=== PATIENT | female | born 1985 | race Caucasian/White ===

== ENCOUNTER → 2019-07-20 | Outpatient (CLI) | payer MEDICARE, OTHER ==
[~2019-07-20] MED LIST: BACI500TO; CIPHYDOTSU; CIPR500 PO; CITA20 PO; HYDR1TAB94 PO; IBUP600 PO
[2019-07-24 15:06] LABS: HPV 16 Negative (Negative); HPV 18 Positive (Negative); HPV OTHER HR TYPES Positive (Negative)
== END | disposition home or self-care (01) ==
LOC: LAB SHORT 16:47 → LAB 16:47
PROVIDERS: Hospitalist
DX: Z12.4 Encounter for screening for malignant neoplasm of cervix (principal)
CPT/HCPCS: 87624; 87625; G0145

== ENCOUNTER → 2019-08-09 | Outpatient (CLI) | payer MEDICARE, OTHER | END | disposition home or self-care (01) | LOC: LAB SHORT 12:45 → PLD 12:45 | DX: N87.1 Moderate cervical dysplasia (principal); R23.4 Changes in skin texture | CPT/HCPCS: 88305 ==

== ENCOUNTER → 2020-10-30 | Outpatient (CLI) | payer MEDICARE, OTHER ==
[2020-11-01 09:01] LABS: HPV 16 Negative (Negative); HPV 18 Positive (Negative); HPV OTHER HR TYPES Negative (Negative)
== END | disposition home or self-care (01) ==
LOC: LAB SHORT 15:20 → LAB 15:20
PROVIDERS: Obstetrics & Gynecology
DX: R87.610 Atypical squamous cells of undetermined significance on cytologic smear of cervix (ASC-US) (principal); R87.810 Cervical high risk human papillomavirus (HPV) DNA test positive
CPT/HCPCS: 87624; 88142

== ENCOUNTER → 2020-11-20 | Outpatient (CLI) | payer MEDICARE, OTHER | END | disposition home or self-care (01) | LOC: PLD 09:06 → LAB SHORT 09:06 | DX: R23.4 Changes in skin texture (principal) | CPT/HCPCS: 88305 ==

== ENCOUNTER → 2021-06-24 | Outpatient (CLI) | payer MEDICARE, OTHER ==
[2021-06-27 14:10] LABS: HPV 16 Negative (Negative); HPV 18 Positive (Negative); HPV OTHER HR TYPES Positive (Negative)
== END | disposition home or self-care (01) ==
LOC: LAB SHORT 17:56 → LAB 17:56
PROVIDERS: Obstetrics & Gynecology
DX: Z12.4 Encounter for screening for malignant neoplasm of cervix (principal); R87.610 Atypical squamous cells of undetermined significance on cytologic smear of cervix (ASC-US); R87.810 Cervical high risk human papillomavirus (HPV) DNA test positive
CPT/HCPCS: 87624; 87625; G0123

== ENCOUNTER → 2022-04-20 | Outpatient (CLI) | payer MEDICARE, OTHER | END | disposition home or self-care (01) | LOC: LAB SHORT 09:20 | DX: L08.0 Pyoderma (principal) | CPT/HCPCS: 87070; 87077; 87147; 87186; 87205 ==

== ENCOUNTER 2022-08-27 14:54 | Inpatient (IN) | payer MEDICARE, OTHER ==
[~2022-08-27] VITALS: Ht 162.6 cm; Wt 120.3 kg
[2022-08-27 15:25] LABS: BASOPHILS ABSOLUTE AUTO 0.04 K/mm3 (0.00-0.23); BASOPHILS PERCENT AUTO 0 % (0-2); EOSINOPHILS ABSOLUTE AUTO 0.23 K/mm3 (0.00-0.68); EOSINOPHILS PERCENT AUTO 2 % (0-6); Hematocrit 39.8 % (33.0-51.0); IMMATURE GRAN ABSOLUTE AUTO 0.07 K/mm3 (0.00-0.10); IMMATURE GRAN PERCENT AUTO 1 % (0-1); LYMPHOCYTES ABSOLUTE AUTO 2.37 K/mm3 (0.84-5.20); LYMPHOCYTES PERCENT AUTO 24 % (21-46); MONOCYTES ABSOLUTE AUTO 0.78 K/mm3 (0.16-1.47); MONOCYTES PERCENT AUTO 8 % (4-13); Mean Corpuscular HGB Conc 32.7 g/dL (31.5-36.5); Mean Corpuscular Volume 95 fL (80-100); Mean Platelet Volume 12.4 fL (9.1-12.4); NEUTROPHILS ABSOLUTE AUTO 6.37 K/mm3 (1.96-9.15); NEUTROPHILS PERCENT AUTO 65 % (41-73); Platelet Count 215 K/mm3 (150-400); RDW Coefficient Variation 13.3 % (11.7-14.2); RDW Standard Deviation 46.8 fL (35.1-46.3); Red Blood Cell Count 4.19 M/mm3 (3.80-5.20); White Blood Cell Count 9.86 K/mm3 (4.00-11.30)
[2022-08-27 16:03] LABS: Albumin, Blood 3.1 g/dL (3.4-5.0); Albumin/Globulin Ratio 0.8 (0.8-1.8); Bilirubin, Total 0.4 mg/dL (0.1-1.0); Bun/Creatinine Ratio 15.3 (12.0-20.0); Creatinine, Blood 0.79 mg/dL (0.40-1.00); Globulin, Blood 3.8 g/dL (2.2-4.0); Potassium, Blood 3.5 mmol/L (3.5-5.5); Total Protein, Blood 6.9 g/dL (6.4-8.2)
[2022-08-27 18:56] LABS: U Amphetamine Screen Not Detected; U Barbituate Screen Not Detected; U Benzodiazapine Screen Not Detected; U Buprenorphine Screen Not Detected; U Cannabinoids Screen Not Detected; U Cocaine Screen Not Detected; U Methadone Screen Not Detected; U Methamphetamine Screen Not Detected; U Opiates Screen Not Detected; U Oxycodone Screen Not Detected; U Phencyclidine Screen Not Detected; U Propoxyphene Screen Not Detected
--- NOTE | 2022-08-27 21:55 | NUR ---
TRANSFER NOTE REPORT TAKEN FROM GUERA RN IN THE ED VIA TELEPHONE. PATIENT TRANSFERRED TO PCU 14 AT 2030. PATIENT WAS ABLE TO WALK FROM [facility] TO BED WITH NO DIFFICULTY. PATIENT WITH STABLE VITALS UPON ARRIVAL. CIWA OF 5 WITH REPORTED HEADACHE AND MILD TREMORS/ANXIETY; MEDICATED PER EMAR FOR HEADACHE. INFUSING NS AT 100MLS/HR PER EMAR INTO LEFT HAND IV. PATIENT'S LS CLEAR THROUGHOUT. DENIES CHEST PAIN/PRESSURE, SOB, AND DIZZINESS/LIGHTHEADEDNESS. PATIENT WITH MOM AT BEDSIDE WHO HELPED GIVE MEDICAL HISTORY. PATIENT APPEARS WITHDRAWN WITH CARE AND PLAYS ON PHONE WHILE ANSWERING THIS RN'S QUESTIONS WITHOUT MAKING EYE CONTACT. PATIENT AND MOTHER CONFIRM PATIENT HAVING PROBLEMS WITH ANXIETY. PATIENT STATES LAST DRINK WAS 5 DAYS AGO. PATIENT APPEARS APPREHENSIVE TO EDUCATION ABOUT ALCOHOL CESSATION. 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 MOTHER ALLOWED TO STAY AT BEDSIDE UNTIL PATIENT IS MORE RELAXED AND READY FOR BED. THIS RN WILL REVIEW CHART AND CONTINUE TO MONITOR AND PROVIDE INTERVENTIONS NEEDED/ORDERED.
--- NOTE | 2022-08-28 04:38 | NUR ---
SHIFT SUMMARY NO ACUTE CHANGES OVERNIGHT. NO SEIZURE ACTIVITY NOTED. NEURO WNL. PATIENT DENIES FEELINGS OF LIGHTHEADEDNESS WHICH PRECEDED SEIZURE PREVIOUSLY. IV CALCIUM GIVEN PER EMAR PER MD JACKSON. REDRAW FOR CALCIUM TIMED FOR 0800 TODAY. PATIENT DENIES TINGLING SENSATIONS. NSR ON THE MONITOR WITH HR 60-80'S. ON RA WITH SPO2 >94%. BP STABLE. AFEBRILE. LAST CIWA 4. NS INFUSING PER EMAR. PATIENT REFUSED THIS RN TO CHANGE CLOTHES AND HELP THE PATIENT DO PERICARE DURING THIS SHIFT. THIS RN NOTED REDNESS IN THE ABDOMINAL AND ROBERTO AREA FOLDS. WIPES LEFT IN ROOM FOR PATIENT TO USE INDEPENDENTLY. PATIENT IS ABLE TO REPOSITION SELF INDPENDENTLY IN BED. BED IN LOWEST POSITION AND CALL LIGHT WITHIN REACH. THIS RN WILL CONTINUE TO MONITOR UNTIL SHIFT CHANGE AT 0700.
[2022-08-28 05:57] LABS: Magnesium, Blood 2.2 mg/dL (1.6-2.4)
[2022-08-28 06:04] LABS: Bun/Creatinine Ratio 14.4 (12.0-20.0); Calcium, Blood 5.8 mg/dL (8.5-10.1); Creatinine, Blood 0.7 mg/dL (0.40-1.00)
[2022-08-28 06:54] LABS: BASOPHILS ABSOLUTE AUTO 0.02 K/mm3 (0.00-0.23); BASOPHILS PERCENT AUTO 0 % (0-2); EOSINOPHILS ABSOLUTE AUTO 0.19 K/mm3 (0.00-0.68); EOSINOPHILS PERCENT AUTO 3 % (0-6); Hematocrit 38.4 % (33.0-51.0); Hemoglobin 12.7 g/dL (11.5-16.0); IMMATURE GRAN ABSOLUTE AUTO 0.01 K/mm3 (0.00-0.10); IMMATURE GRAN PERCENT AUTO 0 % (0-1); LYMPHOCYTES ABSOLUTE AUTO 1.17 K/mm3 (0.84-5.20); LYMPHOCYTES PERCENT AUTO 18 % (21-46); MONOCYTES ABSOLUTE AUTO 0.46 K/mm3 (0.16-1.47); MONOCYTES PERCENT AUTO 7 % (4-13); Mean Corpuscular HGB 31.6 pg (26.0-34.0); Mean Corpuscular HGB Conc 33.1 g/dL (31.5-36.5); Mean Corpuscular Volume 96 fL (80-100); Mean Platelet Volume 12.6 fL (9.1-12.4); NEUTROPHILS ABSOLUTE AUTO 4.81 K/mm3 (1.96-9.15); NEUTROPHILS PERCENT AUTO 72 % (41-73); Platelet Count 190 K/mm3 (150-400); RDW Coefficient Variation 13.6 % (11.7-14.2); Red Blood Cell Count 4.02 M/mm3 (3.80-5.20); White Blood Cell Count 6.66 K/mm3 (4.00-11.30)
--- NOTE | 2022-08-28 11:11 | NUR ---
CARE ASSUMPTION THIS RN ASSUMED CARE AT 0700. VSS. PATIENT IS ALERT AND ORIENTED X4. PATIENT REPORTS NO CHEST PAIN/PRESSURE, PAIN OR SHORTNESS OF BREATH. PATIENT IS A STAND BY ASSIST WHEN GETTING UP AROUND THE ROOM, AND IS ABLE TO PERFORM ADLS INDEPDENTLY. FAMILY AT BEDSIDE AND UPDATED ON PLAN OF CARE. MD COYNE IN TO SEE PATIENT AND UPDATED ON PLAN OF CARE. SEE SHIFT ASSESSMENT FOR FURTHER DETIALS. CALL LIGHT WITHIN REACH AND BED IN LOWEST POSITION.
--- NOTE | 2022-08-28 17:19 | NUR ---
SHIFT SUMMARY PATIENT NEURO REMAINS INTACT. VSS. TELE SR 70S-80. AWAITING FOR PATIENT TO HAVE AN EEG, WAS NOT ABLE TO HAVE ONE TODAY, AND HOPEFULLY TOMORROW WILL BE ABLE TO. NO ACUTE CHANGES THIS SHIFT. PATIENT CALLS APPRORPIATELY WHEN NEEDING ASSISTANCE. PATIENT IS A STANDBY ASSSIT TO THE BATHROOM. PATIENT REPORTS NO PAIN, CHEST PAIN, OR SHORTNESS OF BREATH. MOTHER HAS BEEN AT BEDSIDE MAJORITY OF THE DAY. PLAN OF CARE UP TO DATE. CALL LIGHT WITHIN REACH AND BED IN LOWEST POSITION. WILL CONTINUE TO MONITOR AND PROVIDE CARE UNTIL HAND OFF WITH NEXT SHIFT.
--- NOTE | 2022-08-28 20:22 | NUR ---
ASSUMPTION OF CARE THIS RN ASSUMED CARE OF PATIENT AT 1900. REPORT TAKEN FROM JUNAID QUILES. PATIENT WITH STABLE VITALS AT TIME OF SHIFT CHANGE. PATIENT FINISHED 2L OF NS PER EMAR. SALINE LOCKED IV'S. PATIENT IS ALERT AND ORIENTED FULLY WITH NORMAL PUPIL RESPONSE. DENIES TINGLING IN EXTREMETIES. SEIZURE PADS IN PLACE ON BED. THIS RN ASKED THE PATIENT TO TAKE A SHOWER TO WASH HER HAIR TONIGHT; PATIENT REFUSED AND STATED THAT SHE "JUST GOT COMFORTABLE AND WANTS TO BE LEFT ALONE TO SLEEP". PATIENT EDUCATED ON NEEDING CLEAN HAIR FOR EEG, PATIENT CONTINUED TO DECLINE; THIS RN WILL ATTEMPT INTERVENTION AT A LATER TIME THIS SHIFT. CIWA OF 2 AT THIS TIME. PATIENT ABLE TO REPOSITION SELF IN BED. DENIES PAIN. ABLE TO MAKE NEEDS KNOWN. BED IN LOWEST POSITION AND CALL LIGHT WITHIN REACH. THIS RN WILL REVIEW CHART AND CONTINUET TO MONITOR AND PROVIDE INTERVENTIONS NEEDED/ORDERED.
--- NOTE | 2022-08-29 04:33 | NUR ---
SHIFT SUMMARY NO ACUTE CHANGES OVERNIGHT. NO CHANGES TO NEURO FROM PREVIOUS NOTE. NO SEIZURE ACTIVITY NOTED. PADS REMAIN IN PLACE. VSS. SEE ASSESSMENT. PATIENT REFUSED TO WASH FOR POSSIBLE EEG; THIS RN WILL CONTINUE TO ATTEMPT TO EDUCATE PATIENT ON WASHING HAIR FOR POSSIBLE EEG IN THE AM SO HAIR IS CLEAN FOR PROCEDURE. PATIENT SBA TO THE BATHROOM; CURRENTLY MENSTRUATING WITH PADS IN ROOM. ABLE TO MAKE NEEDS KNOWN. CIWA SCORE OF 1 THIS AM. MEDICATING PER EMAR. BED IN LOWEST POSITION AND CALL LIGHT WITHIN REACH. THIS RN WILL CONTINUE TO MONITOR PATIENT AND PROVIDE INTERVENTIONS NEEDED/ORDERED UNTIL SHIFT CHANGE AT 0700.
[2022-08-29 04:37] LABS: BASOPHILS ABSOLUTE AUTO 0.03 K/mm3 (0.00-0.23); BASOPHILS PERCENT AUTO 1 % (0-2); EOSINOPHILS ABSOLUTE AUTO 0.19 K/mm3 (0.00-0.68); EOSINOPHILS PERCENT AUTO 3 % (0-6); Hematocrit 35.5 % (33.0-51.0); Hemoglobin 11.6 g/dL (11.5-16.0); IMMATURE GRAN ABSOLUTE AUTO 0.02 K/mm3 (0.00-0.10); IMMATURE GRAN PERCENT AUTO 0 % (0-1); LYMPHOCYTES ABSOLUTE AUTO 1.47 K/mm3 (0.84-5.20); LYMPHOCYTES PERCENT AUTO 23 % (21-46); MONOCYTES PERCENT AUTO 9 % (4-13); Mean Corpuscular HGB 31.2 pg (26.0-34.0); Mean Corpuscular HGB Conc 32.7 g/dL (31.5-36.5); Mean Corpuscular Volume 95 fL (80-100); Mean Platelet Volume 12.4 fL (9.1-12.4); NEUTROPHILS ABSOLUTE AUTO 4.14 K/mm3 (1.96-9.15); NEUTROPHILS PERCENT AUTO 64 % (41-73); Platelet Count 171 K/mm3 (150-400); RDW Coefficient Variation 13.5 % (11.7-14.2); RDW Standard Deviation 47.3 fL (35.1-46.3); Red Blood Cell Count 3.72 M/mm3 (3.80-5.20); White Blood Cell Count 6.45 K/mm3 (4.00-11.30)
[2022-08-29 05:02] LABS: Bun/Creatinine Ratio 17.6 (12.0-20.0); Calcium, Blood 7.4 mg/dL (8.5-10.1); Creatinine, Blood 0.68 mg/dL (0.40-1.00); Magnesium, Blood 1.6 mg/dL (1.6-2.4); Phosphorus, Blood 4.7 mg/dL (2.5-4.9); Potassium, Blood 3.5 mmol/L (3.5-5.5)
--- NOTE | 2022-08-29 06:42 | NUR ---
PATIENT UPDATE THIS RN WASHED PATIENT'S HAIR AT 0530 AND DETANGLED/BRUSHED HAIR FOR POSSIBLE EEG TODAY.
[2022-08-29] MEDS ORDERED: Calcium Carbon500 MG PO (13:07)
[2022-08-29] MEDS ORDERED: ERGO50000 PO (13:08)
--- NOTE | 2022-08-29 14:00 | NUR ---
DISCHARGE HOME PT A&O X4. VSS. SPO2 > 92% ON RA. MONITOR SHOWING SR, HR 80s ON TELEMETRY PRIOR TO REMOVAL. PT DENIES PAIN/DISCOMFORT. NO SEIZURE ACTIVITY THIS SHIFT PT AGREEABLE TO MD PLAN FOR DISCHARGE & FOLLOW UP W/ PCP & OUTPT EEG. DISCHARGE INSTRUCTIONS REVIEWED W/ PT & PT MOTHER AT BEDSIDE. PIV REMOVED. DISCHARGE INSTRUCTIONS SENT HOME W/ PT. PT TAKEN OUT BY WHEELCHAIR W/ BELONGINGS @ APPROX 1400.
== END 2022-08-29 14:00 | disposition home or self-care (01) | DRG 641 ==
LOC: ER 14:54 → PCU 20:06
PROVIDERS: Family Medicine; Student in an Organized Health Care Education/Training Program; ADMIT Internal Medicine
PROC: HZ2ZZZZ Detoxification Services for Substance Abuse Treatment (ICD-10-PCS; principal; 2022-08-27)
DX: E83.51 Hypocalcemia (principal); R25.8 Other abnormal involuntary movements; R55 Syncope and collapse; N26.1 Atrophy of kidney (terminal); L40.9 Psoriasis, unspecified; R94.31 Abnormal electrocardiogram [ECG] [EKG]; E83.42 Hypomagnesemia; E55.9 Vitamin D deficiency, unspecified; F10.10 Alcohol abuse, uncomplicated; F41.9 Anxiety disorder, unspecified; Y90.0 Blood alcohol level of less than 20 mg/100 ml; Z28.21 Immunization not carried out because of patient refusal; Z90.89 Acquired absence of other organs; Z98.890 Other specified postprocedural states; Z88.2 Allergy status to sulfonamides; Z91.040 Latex allergy status
CPT/HCPCS: 36415; 70450; 80048; 80053; 82306; 82330; 83735; 83970; 84100; 84146; 84703; 85025; 93005; 93010; A9270; G0480; J0610; J1650; J3475; J7030

== ENCOUNTER → 2022-12-09 | Outpatient (CLI) | payer MEDICARE, OTHER ==
[~2022-12-09] MED LIST changes: +Calcium Carbon500 MG PO; +ERGO50000 PO
[2022-12-09 19:45] LABS: Magnesium, Blood 1.8 mg/dL (1.6-2.4)
[2022-12-09 19:47] LABS: Bun/Creatinine Ratio 22.3 (12.0-20.0); Calcium, Blood 6.4 mg/dL (8.5-10.1); Creatinine, Blood 0.76 mg/dL (0.40-1.00)
== END | disposition home or self-care (01) ==
LOC: LAB SHORT 15:40 → LAB 15:40
PROVIDERS: Hospitalist
DX: E83.42 Hypomagnesemia (principal); E83.51 Hypocalcemia; R73.9 Hyperglycemia, unspecified
CPT/HCPCS: 80048; 82306; 83036; 83735

== ENCOUNTER 2023-12-13 10:15 | Day surgery (SDC) | payer MEDICARE, OTHER ==
[~2023-12-13] VITALS: Ht 160 cm; Wt 111.4 kg
[~2023-12-13 10:15] MED LIST changes: +EPINEPhrine HCl 1 MG / ML 30ML Vial ONE; +Lactated Ringer's 1,000 ML IV ONE
[2023-12-13] MEDS ORDERED: propofoL 20 ML IV ONE (11:00)
[2023-12-13] MEDS ORDERED: FentaNYL Citrate 50 MCG/ML 2 ML Injection ONE (11:01)
[2023-12-13] MEDS ORDERED: Vivitrol380 MG SC (11:02)
[2023-12-13] MEDS ORDERED: Rocuronium Bromide 10 MG/ML 5ML Injection IV ONE (11:03)
[2023-12-13] MEDS ORDERED: Lactated Ringer's 1,000 ML IV ONE (11:27)
[2023-12-13] MEDS ORDERED: Ciprofloxacin 0.3% Opth Soln 2.5 ML BTL ONE (11:29)
[2023-12-13] MEDS ORDERED: Midazolam HCl 1MG / ML 2ML Vial ONE (11:35)
[2023-12-13] MEDS ORDERED: Ondansetron HCl 2 MG / ML 2ML Vial ONE (11:52)
[2023-12-13] MEDS ORDERED: Dexamethasone Sod Phos 10 MG/ML 1ML VIAL ONE (11:52)
--- NOTE | 2023-12-13 12:24 | NUR ---
12/13/23 1224 RADHA CANALES PT DENIES PAIN AND NAUSEA
--- NOTE | 2023-12-13 12:40 | NUR ---
12/13/23 1240 RADHA CANALES IN WITH PT.
[2023-12-13 13:41] VITALS: BP 143/96
== END 2023-12-13 13:35 | disposition home or self-care (01) ==
LOC: ORSCSDS 10:15
PROVIDERS: Otolaryngology
PROC: 099670Z Drainage of Left Middle Ear with Drainage Device, Via Natural or Artificial Opening (ICD-10-PCS; principal; 2023-12-13 11:30)
PROC: 09Q87ZZ Repair Left Tympanic Membrane, Via Natural or Artificial Opening (ICD-10-PCS; principal; 2023-12-13 11:30)
DX: H72.02 Central perforation of tympanic membrane, left ear (principal); E66.9 Obesity, unspecified; Z68.41 Body mass index [BMI] 40.0-44.9, adult; Z79.899 Other long term (current) drug therapy
CPT/HCPCS: A9270; J0171; J1100; J2250; J2405; J2704; J3010; J7120

== ENCOUNTER → 2024-03-14 | Outpatient (CLI) | payer MEDICARE, OTHER ==
[~2024-03-14] MED LIST changes: -EPINEPhrine HCl 1 MG / ML 30ML Vial ONE; -Lactated Ringer's 1,000 ML IV ONE; +Vivitrol380 MG SC
== END | disposition home or self-care (01) ==
LOC: LAB 17:30 → LAB SHORT 17:30
DX: E55.9 Vitamin D deficiency, unspecified (principal); R53.83 Other fatigue
CPT/HCPCS: 82306; 84443

== ENCOUNTER → 2024-06-13 | Outpatient (CLI) | payer MEDICARE, OTHER ==
[2024-06-13 19:47] LABS: Albumin, Blood 3.6 g/dL (3.4-5.0); Albumin/Globulin Ratio 1.1 (0.8-1.8); Bilirubin, Total 0.5 mg/dL (0.1-1.0); Bun/Creatinine Ratio 21.9 (12.0-20.0); Calcium, Blood 7.1 mg/dL (8.5-10.1); Creatinine, Blood 0.91 mg/dL (0.40-1.00); Globulin, Blood 3.3 g/dL (2.2-4.0); Potassium, Blood 3.8 mmol/L (3.5-5.5); Total Protein, Blood 6.9 g/dL (6.4-8.2)
== END | disposition home or self-care (01) ==
LOC: LAB SHORT 17:40 → LAB 17:40
PROVIDERS: Hospitalist
DX: N39.44 Nocturnal enuresis (principal); R73.9 Hyperglycemia, unspecified
CPT/HCPCS: 80053; 83036; 87086

== ENCOUNTER → 2024-09-04 | Outpatient (CLI) | payer MEDICARE, OTHER ==
[2024-09-04 20:08] LABS: Bun/Creatinine Ratio 24.4 (12.0-20.0); Calcium, Blood 7.4 mg/dL (8.5-10.1); Creatinine, Blood 0.78 mg/dL (0.40-1.00); Potassium, Blood 4.2 mmol/L (3.5-5.5)
== END ==
LOC: LAB SHORT 19:48 → LAB 19:48
PROVIDERS: Hospitalist
DX: E83.51 Hypocalcemia (principal)
CPT/HCPCS: 80048; 82306

== ENCOUNTER 2025-03-21 17:14 | Emergency (ER) | payer MEDICARE, OTHER ==
[~2025-03-21] VITALS: Ht 160 cm; Wt 113.4 kg
[2025-03-21 17:21] VITALS: BP 118/66
[2025-03-21] MEDS ORDERED: Ketorolac Tromethamine 15mg Vial IM ONE (17:30)
[2025-03-21] MEDS ORDERED: Robaxin750 MG PO (17:33)
== END 2025-03-21 17:36 | disposition home or self-care (01) ==
LOC: ER 17:14
DX: M25.511 Pain in right shoulder (principal); Z88.2 Allergy status to sulfonamides; Z91.040 Latex allergy status; Z79.899 Other long term (current) drug therapy
CPT/HCPCS: 96372; 99282-25; J1885

== ENCOUNTER → 2025-05-08 | Outpatient (CLI) | payer MEDICARE, OTHER ==
[~2025-05-08] MED LIST changes: +Robaxin750 MG PO
[2025-05-08 20:43] LABS: Amylase, Blood 32.0 U/L (25-115); Magnesium, Blood 1.8 mg/dL (1.6-2.4); Phosphorus, Blood 4.4 mg/dL (2.5-4.9)
== END ==
LOC: LAB SHORT 18:25 → LAB 18:25
PROVIDERS: Hospitalist
DX: E83.51 Hypocalcemia (principal)
CPT/HCPCS: 82150; 82306; 83735; 83970; 84100

== ENCOUNTER → 2025-08-17 | Outpatient (CLI) | payer MEDICARE, OTHER ==
[2025-08-17 19:37] LABS: Campylobacter Sp Not Detected (NOT DETECT); E. Coli O157 Not Detected (NOT DETECT); Enteroaggregative E. coli-EAEC Not Detected (NOT DETECT); Enteropathogenic E. coli-EPEC Not Detected (NOT DETECT); Enterotoxigenic E. coli-ETEC Not Detected (NOT DETECT); Salmonella Sp Not Detected (NOT DETECT); Shiga Toxin-prod E. coli-STEC Not Detected (NOT DETECT); Shigella/Enteroin E. coli-EIEC Not Detected (NOT DETECT); Vibrio Sp Not Detected (NOT DETECT)
== END ==
LOC: LAB SHORT 14:57 → LAB 14:57
PROVIDERS: Hospitalist
DX: R19.7 Diarrhea, unspecified (principal)
CPT/HCPCS: 87324; 87507